=== PATIENT | male | born 1950 | race Caucasian/White ===

== ENCOUNTER 2018-03-22 05:58 | Inpatient (IN) | payer OTHER ==
[2018-03-22] MEDS ORDERED: TRANEXAMIC ACID 3,000 MG in NS (SYRINGE) 50 ML IRR ONE (06:00)
[2018-03-22] MEDS ORDERED: ROPIVACAINE 0.2% 80 MG, EPINEPHrine 0.2 MG, KETOROLAC TROMETHAMINE 30 MG in SYRINGE 0 ML IU ONE (06:00)
--- NOTE | 2018-03-22 06:20 | PDHPUP ---
History & Physical Update H&P update statement: This history and physical update is based on an assessment of the patient which was completed after admission or registration (within 24 hours), but prior to the surgery/procedure. H&P update: H&P reviewed & patient examined, no change in patient's condition since H&P completed
[2018-03-22] MEDS ORDERED: ACETAMINOPHEN 325 MG TAB PO ONE (06:22)
[2018-03-22] MEDS ORDERED: FAMOTIDINE 20 MG TAB PO ONE (06:22)
[2018-03-22] MEDS ORDERED: LR 1,000 ML IV ONE (06:22)
[2018-03-22] MEDS ORDERED: DEXAMETHASONE 4 MG/ML VIAL IVP ONE (06:22)
[2018-03-22] MEDS ORDERED: ceFAZolin 2 GM/DEXTROSE 100 ML IV ONE (06:22)
[2018-03-22] MEDS ORDERED: TRANEXAMIC ACID 3,000 MG/50 ML BAG IRR ONE (07:05)
--- NOTE | 2018-03-22 07:17 | PDANEPAE ---
SARI History of Present Illness L HEMANT GUO Past Medical History - Cardiovascular History Hx Hypertension: No Hx Arrhythmias: No Hx Chest Pain: No Hx Coronary Artery / Peripheral Vascular Disease: No Hx CHF / Valvular Disease: No Hx Palpitations: No - Pulmonary History Hx COPD: No Hx Asthma/Reactive Airway Disease: No Hx Recent Upper Respiratory Infection: No Hx Oxygen in Use at Home: No Hx Sleep Apnea: No Sleep Apnea Screening Result - Last Documented: Negative - Neurologic History Hx Cerebrovascular Accident: No Hx Seizures: No Hx Dementia: No - Endocrine History Hx Diabetes: No - Renal History Hx Renal Disorders: No - Liver History Hx Hepatic Disorders: No - Neurological & Psychiatric Hx Hx Neurological and Psychiatric Disorders: No - Cancer History Hx Cancer: Yes Cancer History Comment: skin cancers removed from face and arms - Congenital Disorder History Hx Congenital Disorders: No - GI History Hx Gastrointestinal Disorders: No - Other Health History Other Health History: hearing issues with both ears - Chronic Pain History Chronic Pain: No - Surgical History Prior Surgeries: hemmorroid removal. L HEMANT GUO Review of Systems Review of Systems: - Exercise capacity METS (RN): 5 METS ANE Patient History - Allergies Allergies/Adverse Reactions: morphine Allergy (Verified 03/22/18 06:50) Nausea - Home Medications Home Medications: Acetaminophen [Tylenol ES 500 mg (*)] 1,000 mg PO TID PRN 03/18/18 [Last Taken 03/21/18 18:00] Cholecalciferol Vit D3 [Vitamin D3 (*)] 1,000 units PO DAILY 03/18/18 [Last Taken 03/08/18] Fluticasone Nasal [Flonase Nasal [place] (RX)] 2 sprays NASAL BID 03/18/18 [Last Taken 03/22/18] Herbals/Supplements -Info Only 1 ea PO DAILY 03/18/18 [Last Taken 03/08/18] Multivitamins [Multivitamin (*)] 1 each PO DAILY 03/18/18 [Last Taken 03/08/18] Tamsulosin HCl [Flomax 0.4 MG (*)] 0.4 mg PO DAILY@19 03/18/18 [Last Taken 03/21 19:00] - NPO status NPO Since - Liquids (Date): 03/21/18 NPO Since - Liquids (Time): 19:00 NPO Since - Solids (Date): 03/21/18 NPO Since - Solids (Time): 19:00 - Anes Hx Anes Hx: no prior problems - Smoking Hx Smoking Status: Former smoker - Alcohol Use Alcohol Use: Occasionally - Family Anes Hx Family Anes Hx: none Family Hx Anesthesia Complications: none ANE Labs/Vital Signs - Vital Signs Blood Pressure: 127/92 Heart Rate: 67 Respiratory Rate: 16 O2 Sat (%): 92 Height: 190.5 cm Weight: 106.594 kg ANE Physical Exam - Airway Neck exam: FROM Mallampati Score: Class 2 Mouth exam: normal dental/mouth exam - Pulmonary Pulmonary: no respiratory distress, clear to auscultation - Cardiovascular Cardiovascular: regular rate and rhythym, no murmur, rub, or gallop - ASA Status ASA Status: II ANE Anesthesia Plan Anesthesia Plan: GA with mask, spinal
[2018-03-22] MEDS ORDERED: MIDAZOLAM 2 MG/2 ML VIAL IVP ONE (07:19)
[2018-03-22] MEDS ORDERED: PROPOFOL/EMULSION 500 MG/50 ML BOTTLE IV ONE ×2 (07:25→09:05)
[2018-03-22] MEDS ORDERED: PROMETHAZINE HCL 25 MG/ML INJ IVP PRN ×2 (09:35→09:41)
[2018-03-22] MEDS ORDERED: LACTULOSE 20 GM/30 ML UDCUP PO PRN (09:35)
[2018-03-22] MEDS ORDERED: CYCLOBENZAPRINE 10 MG TAB PO PRN (09:35)
[2018-03-22] MEDS ORDERED: METOCLOPRAMIDE 10 MG/2 ML VIAL IVP PRN (09:35)
[2018-03-22] MEDS ORDERED: BISACODYL 10 MG SUPP PR PRN (09:35)
[2018-03-22] MEDS ORDERED: ONDANSETRON 4 MG/2 ML VIAL IVP PRN ×2 (09:35→09:41)
[2018-03-22] MEDS ORDERED: ONDANSETRON DISINTEGRATING 4 MG TAB PO PRN (09:35)
[2018-03-22] MEDS ORDERED: PROMETHAZINE HCL 25 MG SUPPR PR PRN (09:35)
[2018-03-22] MEDS ORDERED: POLYETHYLENE GLYCOL 3350 17 GM PKT PO PRN (09:35)
[2018-03-22] MEDS ORDERED: diphenhydrAMINE 25 MG CAP PO PRN (09:35)
[2018-03-22] MEDS ORDERED: TEMAZEPAM 15 MG CAP PO PRN (09:35)
[2018-03-22] MEDS ORDERED: DIPHENOXYLATE/ATROPINE LOMOTIL 1 TAB PO PRN (09:35)
[2018-03-22] MEDS ORDERED: MAGNESIUM HYDROXIDE 30 ML UDCUP PO PRN (09:35)
--- NOTE | 2018-03-22 09:35 | POSTOPPROG ---
Post Op Note Date of Operation: 03/22/18 Surgeon: Delfino Bateman Network Director: ronda bateman Anesthesiologist: dr. saldaña Anesthesia: Spinal Pre-op Diagnosis: left hip OA Post-op Diagnosis: same Indication: left hip pain Procedure: L HEMANT ant approach Findings: severe hip OA Inf/Abcess present in the surg proc area at time of surgery?: No EBL: 100-500
[2018-03-22] MEDS ORDERED: ACETAMINOPHEN 500 MG TAB PO PRN (09:41)
[2018-03-22] MEDS ORDERED: oxyCODONE IR 5 MG TAB PO PRN (09:41)
[2018-03-22] MEDS ORDERED: NALOXONE HCL 0.4 MG/ML INJ IVP PRN (09:41)
[2018-03-22] MEDS ORDERED: HYDROmorphONE/DILAUDID 1 MG/ML INJ IVP PRN (09:41)
[2018-03-22] MEDS ORDERED: HYDROCODONE/APAP 5/325 TAB PO PRN (09:41)
[2018-03-22] MEDS ORDERED: fentaNYL 100 MCG/2 ML INJ IVP PRN (09:41)
--- NOTE | 2018-03-22 09:43 | POSTANESTH ---
Post Anesthetic Evaluation Cardiovascular Status: Normal, Stable, Similar to Pre-Op Cond Respiratory Status: Normal, Stable, Similar to Pre-op Cond. Level of Consciousness/Mental Status: Can Participate in Eval, Alert and Oriented Pain Control: Adequate, Prn Tx Ordered Nausea/Vomiting Control: Adequate, Prn Tx Ordered Complications Possibly Related to Anesthesia: None Noted
[2018-03-22] MEDS ORDERED: LR 1,000 ML IV SCH (10:00)
[2018-03-22] MEDS: oxyCODONE IR 5 MG TAB PO PRN ×5 (11:33→23:52)
--- NOTE | 2018-03-22 11:53 | PDMN ---
Medical Necessity Medical necessity: [facility] S560 Hip Arthroplasty, A-2 days. /7 y/o s/p Left Total Hip Arthroplasty Anterior Approach. Medicare Inpatient Only
[2018-03-22] MEDS: ACETAMINOPHEN 325 MG TAB PO SCH ×3 (12:24→23:51)
[2018-03-22] MEDS ORDERED: WARFARIN SODIUM 5 MG TAB PO SCH (16:00)
[2018-03-22] MEDS: ceFAZolin 2 GM/DEXTROSE 100 ML IV SCH ×2 (16:53→23:54)
[2018-03-22] MEDS ORDERED: TAMSULOSIN HCL 0.4 MG CAP PO SCH (19:00)
[2018-03-22] MEDS: SENNOSIDES/DOCUSATE SODIUM TAB PO SCH (20:30)
[2018-03-22] MEDS: FAMOTIDINE 20 MG TAB PO SCH (20:30)
[2018-03-22] MEDS: FLUTICASONE NASAL 120 SPRAYS/16 GM MDI EACHNARE SCH (21:04)
[2018-03-23 04:59] LABS: INR 1.15 (0.83-1.16); PROTIME(PATIENT) 14.9 SEC (12.0-15.0)
[2018-03-23] MEDS: ACETAMINOPHEN 325 MG TAB PO SCH ×2 (06:28→11:36)
[2018-03-23] MEDS: oxyCODONE IR 5 MG TAB PO PRN ×2 (06:30→12:12)
[2018-03-23] MEDS: FAMOTIDINE 20 MG TAB PO SCH (07:54)
[2018-03-23] MEDS: SENNOSIDES/DOCUSATE SODIUM TAB PO SCH (07:59)
[2018-03-23] MEDS: FLUTICASONE NASAL 120 SPRAYS/16 GM MDI EACHNARE SCH (08:01)
[2018-03-23] MEDS ORDERED: ENOXAPARIN 40 MG/0.4 ML SYR SC SCH (09:00)
--- NOTE | 2018-03-23 11:13 | SOAPPROG ---
SOAP Progress Note Assessment/Plan: Assessment: Ryan is doing well POD 1 s/p L HEMANT pain is well controlled on oral pain meds VTe ppx : recommend coumadin and lovenox due to history of DVT Anemia: level expected initially postop D/c planning: d/c to home pending releaes from PT Plan: 03/23/18 11:11 Subjective: Ryan is doing well ,mild pain, denies SOB, chest pain and N/V Objective: Vital Signs Temp Pulse Resp BP Pulse Ox 37.0 C 60 16 131/83 H 96 03/23/18 07:37 03/23/18 07:37 03/23/18 07:37 03/23/18 07:37 03/23/18 07:37 Laboratory Results 03/23/18 04:37 03/22/18 03/23/18 03/24/18 05:59 05:59 05:59 Intake Total 2500 Output Total 1375 Balance 1125 PT 14.9 SEC (12.0-15.0) 03/23/18 04:37 INR 1.15 (0.83-1.16) 03/23/18 04:37 LLE: incision dressing is clean and dry, NVI, +pf/df ICD10 Worksheet Patient Problems: Problems Problem Status Onset Primary localized osteoarthritis of right hip Acute
[2018-03-23 11:50] VITALS: BP 120/72
--- NOTE | 2018-03-23 16:32 | GOP ---
[f rep st] OPERATIVE REPORT DATE OF OPERATION: 03/22/2018 SURGEON: Waylon Nam MD FLUME TENDER: Helen Nam PA-C ANESTHESIA: Spinal. PREOPERATIVE DIAGNOSIS: Left hip osteoarthritis. POSTOPERATIVE DIAGNOSIS: Left hip osteoarthritis. PROCEDURE PERFORMED: Left total hip arthroplasty with x-ray. FINDINGS: ESTIMATED BLOOD LOSS: 200 mL. INDICATIONS: The patient has progressively worsening arthritis of the hip which has failed medical m anagement. The patient understands the treatment options including continued non-operative care and has selected surgical intervention. The patient has decided to undergo total hip arthroplasty via th e direct anterior approach, understanding the risks of the procedure including, but not limited to, n eurovascular injury, infection, persistent pain, component wear and loosening, deep venous thrombosis , pulmonary embolism, limb length inequality, hip instability (including dislocation), and intra-oper ative fractures. DESCRIPTION OF PROCEDURE: After proper identification of the patient including verification and yi ing the surgical site, the patient was brought to the operating room and placed in the supine positio n. All bony prominences were well padded. Anesthesia was induced without complication and intraveno us prophylactic antibiotics were administered prior to skin incision. The operative leg was placed in the Trumpf Arch table extension and the well leg in a [place] leg ho lder. The patient was prepped and draped in the usual sterile fashion. The C-arm was draped for int ra-operative fluoroscopy to check acetabular position, femoral component position including leg lengt h and femoral offset. Attention was then drawn to surgical exposure of the hip. An incision was made with a #10 Bard Mark r blade starting 3 cm lateral and 3 cm distal to the anterior superior iliac spine measuring 8-10 cm and coursing distally toward the greater trochanter. The skin and subcutaneous tissues were divided sharply down to the fascia rolly. The fascia rolly was incised in line with the skin incision exposing the underlying tensor fascia rolly muscle. The muscle was bluntly elevated from the fascia and the f irst extracapsular Cobra retractor was placed laterally at the junction of the superior femoral neck and greater trochanter. The lateral femoral circumflex vessels were identified, cauterized, and divi ded with the Aquamantys bipolar cautery. The deep investing fascia of the TFL was divided to allow p rishi mobilization of the muscle preventing damage during the retraction. The reflected head of the rectus femoris muscle was elevated off the anterior hip capsule and a medial Cobra retractor was plac ed just proximal to the lesser trochanter. The anterior capsulotomy was made sharply from the superolateral acetabulum to the saddle junction of the superior femoral neck and greater trochanter, then coursing inferomedial towards the lesser troc hanter. The retractors were then placed in the intracapsular position for femoral neck osteotomy. C orresponding to pre-operative templating, the osteotomy was made with the oscillating saw carefully p rotecting the greater trochanter and soft tissues. The femoral head was removed from the acetabulum with a corkscrew and confirmed to be severely arthritic with exposed bone, deformity and osteophytes. Similar findings were confirmed in the acetabulum. The Arch table extension was then placed in 40 degrees external rotation. Attention was then drawn to the acetabular preparation. After placement of the anterior and posterio r Cobra retractors outside the labrum and intracapsular, the circumferential labrum was removed sharp ly. The foveal contents were then removed and hemostasis obtained with cautery. The first reamer selected was sized using the removed femoral head. Reaming began with medialization and then commenced in 2 mm increments at 45 degrees of abduction and 15 degrees of anteversion using fluoroscopic navigation. Reaming ceased 1 mm less than the definitive acetabular component and ines esponded to the pre-operative templating. The final acetabular component was inserted using fluorosc opy to achieve proper orientation yielding excellent purchase and stability in the acetabulum. The f inal acetabular liner was then placed and its seating confirmed. Attention was then turned to the femur. The Arch table extension was placed in extension and adducti on, delivering the osteotomized femoral neck into the wound. A 2-pronged femoral elevator was placed at the calcar and another at the tip of the greater trochanter. The posterolateral capsule was rele ased with cautery allowing mobilization of the femur lateral and anterior for preparation. The exter nal rotators were visualized and preserved. A curette and rongeur were used to open the starting poi nt for broaching. Serial broaching started with the #0 broach and ended with the broach that exhibit ed excellent fit in the proximal femur. A change in pitch during mallet strikes was accompanied by t he inability to advance the broach any further. The trial reduction was performed and fluoroscopic n avigation was utilized to check limb length. Adjustments were made to equalize limb length according ly. After the final trials were accepted they were removed and the wound was copiously lavaged. The femo ral component was seated to the same depth as the final broach and the femoral head was impacted onto the clean trunnion. The hip was then reduced for the final time and once more fluoroscopy was used to check that limb length equality was achieved. The wound was irrigated and closed in layers, the fascia rolly with 2-0 Quill, the subcutaneous tissue with 2-0 Quill, and the skin with Dermabond. Sterile dressings were applied. Final sharps and spon ge counts were accurate. The patient was then transferred to a hospital bed and [facility] in stable condition. IMPLANTS: Accolade II size 8 at 132 acetabular component, 58 mm Tritanium. Liner is a Trident x-ray 36 mm. Head is a Biolox Delta 36 mm/-2.5. /[id number]/MODL
--- NOTE | 2018-03-29 02:28 | GDS ---
[f rep st] DISCHARGE SUMMARY ADMISSION DIAGNOSIS: Left hip osteoarthritis. DISCHARGE DIAGNOSIS: Left hip osteoarthritis. PROCEDURE: Left total hip arthroplasty. VTE PROPHYLAXIS: Recommend Coumadin and Lovenox. BRIEF DESCRIPTION OF HOSPITAL STAY: Patient was admitted for an elective joint arthroplasty. The pa tient tolerated the procedure well and has passed physical therapy. The patient was given appropriat e antibiotic prophylaxis and venous thromboembolism prophylaxis. The patient's pain was well control led on oral pain medication, patient was holding down food, and had urinated. Decision was made to d ischarge the patient. The patient was given post-operative prescriptions pre-operatively. PLAN: Please followup as scheduled with Dr. Nam's office April 11 at 9:30 a.m. /[id number]/MODL
== END 2018-03-23 12:55 | disposition home or self-care (01) | DRG 470 ==
LOC: F3N 05:58
PROVIDERS: ADMIT Orthopaedic Surgery; ATTEND Orthopaedic Surgery
PROC: 0SRB04A Replacement of Left Hip Joint with Ceramic on Polyethylene Synthetic Substitute, Uncemented, Open Approach (ICD-10-PCS; principal; 2018-03-22 08:15)
DX: M17.12 Unilateral primary osteoarthritis, left knee (principal); N40.0 Benign prostatic hyperplasia without lower urinary tract symptoms
CPT/HCPCS: 97116-GP; 97161-GP; G8978-GP-CJ; G8979-GP-CI; G8980-GP-CI; J0171; J0690; J1100; J1650; J1885; J2250; J2704; J2765; J2795